=== PATIENT | female | born 1955 | race Caucasian/White ===

== ENCOUNTER 2016-08-18 20:24 | Emergency (ER) | payer OTHER ==
[2016-08-18 20:50] VITALS: BP 130/75; PULSE 82; RESP 18; O2SAT 99
[2016-08-18 21:45] LABS: BASOPHILS % (AUTO) 0.8 % (0-3); EOSINOPHILS % (AUTO) 1.3 % (0-5); MONOCYTES % (AUTO) 9.5 % (4-12); Mean Corpuscular Hemoglobin 25.7 pg (27.0-35.0); Mean Corpuscular Volume 80.8 fL (81-100); NEUTROPHILS % (AUTO) 60.7 % (40-74); Platelet Count 311 bil/L (150-400)
[2016-08-18 22:07] LABS: TROPONIN T 0.01 ug/L (0.0-0.011)
[2016-08-18 22:18] LABS: Magnesium 1.9 mg/dL (1.6-2.6)
--- NOTE | 2016-08-18 22:50 | ED.REPORT ---
HPI-General Illness Date of Service August 18, 2016 ED Provider: Micha Negron MD The patient is a 61 year old female w/ a hx of HTN who presents to the ED due to heart palpitations for the past few days. She has been on daily Xanax at night as a sleep aid for many years. She reduced the dosage to half and hasn't had any for 3 or 4 days and began to experience her symptoms. Associated symptoms include nausea and blurred vision. The pt cannot sleep without Xanax. She is supposed to have surgery on Thursday. 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 Her PCP is Dr. Sorensen. Nursing Notes Stated Complaint: HEART PALPITATIONS, BLURRY VISION Chief Complaint: General Complaint Nursing Notes Reviewed: Yes Allergies: Coded Allergies: Tetanus Vaccines and Toxoid (Verified Allergy, Unknown, 08/18/16) Scheduled PRN Alprazolam (Alprazolam) 0.5 Mg Tablet 0.5 MG PO HS PRN PRN For Anxiety General Time Seen by MD: 22:49 Chief Complaint Other Hx Obtained From: Patient Arrived By: Walk-in Onset Occurred: 3 days ago Recent Healthcare: No recent doctor visit, No recent hospitalization Similar Sx Previous: No Past Medical History Past Medical History HTN arthritis Past Surgical History Reports: Hysterectomy Social History Other Social History: Good social support, , Local resident Review of Systems heart palpitations Full Review of Systems Eyes: Reports: Blurred bilateral GI: Reports: Nausea Psychiatric: Reports: Insomnia Complete sys rev & neg: except as marked. Physical Exam Vital Signs Vital Signs Date Time Temp Pulse Resp B/P Pulse Ox O2 Delivery O2 Flow Rate FiO2 08/18/16 23:34 36.4 75 20 126/66 98 Room Air 08/18/16 23:11 36.4 75 20 126/66 98 Room Air 08/18/16 20:50 36.7 82 18 130/75 99 Room Air Initial VS: Reviewed Head / Eyes: Atraumatic, Normocephalic, PERRL General/Constitutional: Cooperative, Not toxic appearing Behavior: Positive: Anxious mildly tremulous Interpretation & Diagnostics Lab Results Interpretation Result Diagram: 08/18/16211908/18/162119 Test 08/18/16 21:20 White Blood Count 9.2th/mm3 (3.8-10.1) Red Blood Count 4.63mil/mm3 (3.90-5.20) Hemoglobin 11.9g/dL (12.0-15.6) Hematocrit 37.4% (35.0-46.0) Mean Corpuscular Volume 80.8fL (81-100) Mean Corpuscular Hemoglobin 25.7pg (27.0-35.0) Mean Corpuscular Hemoglobin Concent 31.8% (32.0-37.0) Red Cell Distribution Width 14.6% (12.3-15.4) Platelet Count 311bil/L (150-400) Neutrophils (%) (Auto) 60.7% (40-74) Lymphocytes (%) (Auto) 27.4% (14-46) Monocytes (%) (Auto) 9.5% (4-12) Eosinophils (%) (Auto) 1.3% (0-5) Basophils (%) (Auto) 0.8% (0-3) Sodium Level 141mEq/L (134-144) Potassium Level 3.9mEq/L (3.5-5.2) Chloride Level 101mEq/L (97-108) Carbon Dioxide Level 27mmol/L (18-29) Blood Urea Nitrogen 16mg/dL (8-27) Creatinine 0.96mg/dL (0.57-1.00) Estimat Glomerular Filtration Rate 84mL/min (>59) Glucose Level 141mg/dL (60-99) Calcium Level 10.2mg/dL (8.5-10.1) Magnesium Level 1.9mg/dL (1.6-2.6) Total Bilirubin 0.2mg/dL (0.0-1.2) Aspartate Amino Transf (AST/SGOT) 24U/L (0-50) Alanine Aminotransferase (ALT/SGPT) 22U/L (0-32) Alkaline Phosphatase 119U/L (25-165) Troponin T 0.010ug/L (0.0-0.011) Total Protein 7.1g/dL (6.4-8.4) Albumin 4.0g/dL (3.4-5.0) Hold Riley Top Tube Received (Received) ECG Interpretation Time: 22:41 Interpreted by: ED physician Normal ECG Interpretation: Normal ECG w/ rate of... (74) Re-Eval/Medical Decision Med Decision/Clinical Course 61-year-old presents with anxiety and palpitations, in withdrawal from Xanax. She is just two days preop from a parathyroidectomy, and the timing is not particularly good at the moment. She should probably be maintained her perioperative period and then tapered afterwards. Provided with fourteen Xanax 0.5 with intention of one and night through surgery, then a half pill nightly taper. Discharged in stable condition follow up with Dr. Sorensen Time of Eval: 23:06 Re-Evaluation/Progress Note: Pt rechecked. Discussed plan of treatment and reducation in Xanax dosage with patient. F/U and RTER warnings given. Pt understands and agrees with plan. All questions addressed. Counseled Regarding: Diagnosis, Lab results, Need for follow-up, When/why to return to ED Discharge & Departure Primary Impression: Benzodiazepine withdrawal Complication of substance-induced condition: uncomplicated Qualified Code: F13.230 - Sedative, hypnotic or anxiolytic dependence with withdrawal, uncomplicated Additional Impressions: Heart palpitations Anxiety Insomnia Disposition: Home Discharge Condition All VS Reviewed: Yes Condition: Stable Additional Instructions: Your symptoms are most likely due to Xanax withdrawal. For now, maintained your once nightly dose, until you are past the operative period, and are recovering. I would then recommend slowly decreasing your Xanax dosage over a period of time, such as one quarter tablet nightly for a week and every other night for another week and then stop. Follow up with your primary care physician to monitor your withdrawal. He can also help to deal with her long- term insomnia by other means. Return to the Emergency Department for any new or worsening symptoms. I hope you feel better soon! Referrals: Nabor Sorensen DO (PCP) Vikas Attestation Portion of this note were transcribed by Nilda Bello. I, Dr. Micha Negron, personally performed the history, physical exam, and medical decision- making: I reviewed and confirmed the accuracy for the information in the transcribed note. Signed by: vikas Carr, 08/18/16 2300 copies to: Nabor Sorensen Christopher W MD August 18, 2016 22:50 Nilda Bello August 18, 2016 23:06
[2016-08-18] MEDS ORDERED: ALPRAZolam 0.5 mg Tablet PO ONE (23:10)
[2016-08-18 23:11] VITALS: BP 126/66; PULSE 75; RESP 20; O2SAT 98
[2016-08-18] MEDS ORDERED: ALPR0.5T8 PO (23:13)
[2016-08-18 23:34] VITALS: BP 126/66; PULSE 75; RESP 20; O2SAT 98
[2016-08-20] MEDS ORDERED: METO-274 PO (12:13)
[2016-08-20] MEDS ORDERED: LEVO125T6 PO (12:13)
[2016-08-20] MEDS ORDERED: ATOR80TA PO (12:13)
[2016-08-20] MEDS ORDERED: IBUP800T28 PO (12:13)
== END 2016-08-18 23:35 | disposition home or self-care (01) ==
LOC: SED 20:24
DX: R00.2 Palpitations (principal); F13.230 Sedative, hypnotic or anxiolytic dependence with withdrawal, uncomplicated; F41.9 Anxiety disorder, unspecified; G47.00 Insomnia, unspecified; R11.0 Nausea; H53.8 Other visual disturbances; F43.9 Reaction to severe stress, unspecified; I10 Essential (primary) hypertension; Z88.7 Allergy status to serum and vaccine

== ENCOUNTER 2016-08-22 06:02 | Day surgery (SDC) | payer OTHER ==
[~2016-08-22] VITALS: Ht 172.7 cm; Wt 83.1 kg
[2016-08-22] VITALS (11 sets, daily range): BP systolic 103–154; BP diastolic 56–79; PULSE 66–76; RESP 11–18; O2SAT 93–100
[~2016-08-22 06:02] MED LIST: ALPR0.5T8 PO; ATOR80TA PO; IBUP800T28 PO; LEVO125T6 PO; METO-274 PO
[2016-08-22] MEDS ORDERED: fentaNYL-PF 50 mCg/mL 2 mL Inj ONE (06:03)
[2016-08-22] MEDS ORDERED: Ondansetron 2 mg/mL 2 mL Inj ONE (06:03)
[2016-08-22] MEDS ORDERED: Phenylephrine/NS-PF 100 mCg/mL 5 mL Syringe IVPUSH ONE (06:03)
[2016-08-22] MEDS ORDERED: Lidocaine PF 1% 30 mL Inj ONE (06:03)
[2016-08-22] MEDS ORDERED: Dexamethasone 4 mg/mL Inj ONE (06:03)
[2016-08-22] MEDS ORDERED: Propofol 10,000 mCg/mL 20 mL Inj ONE (06:03)
[2016-08-22] MEDS: Lactated Ringer's 1,000 ML IV SCH ×3 (06:20→09:29)
[2016-08-22] MEDS ORDERED: Lactated Ringer's 500 ML IV PRN (07:24)
[2016-08-22] MEDS ORDERED: Lactated Ringer's 1,000 ML IV SCH (07:24)
--- NOTE | 2016-08-22 07:24 | PCM.HPANE ---
Patient Data Date of Service: August 22, 2016 (719) Surgeon Admitting Provider: Attending Provider:Justin Larsen MD Primary Care Physician:Nabor Sorensen DO Other Provider:Prosper Carreon Anesthesia Reason for Visit Hyperparathyroidism Ht/WT & BMI Height (Feet): 5 Height (Inches): 8 Weight (Kilograms): 83.1 Body Mass Index 27.00 Allergies Coded Allergies: Tetanus Vaccines and Toxoid (Verified Allergy, Unknown, UNKNOWN, 08/20/16) Past Anesthesia History Anesthesia History: Denies:: Abnormal Airway, Anesthesia Reactions, Difficult Intubation, Fam Anesthesia Reaction, Fam Malignant Hypertherm, Malignant Hyperthermia Diabetes History Hx Diabetes?: No MRSA MRSA: No Medications Home Meds Incl Beta Rosita: Yes (METOPROLOL) Active Scripts Alprazolam 0.5 Mg Tablet0.5 Mg PO HS PRN For Anxiety #14 TABLET Ref 0 Prov:Micha Negron MD 08/18/16 Reported Medications Metoprolol Succinate ER 100 Mg Tab.[id number] Mg PO DAILY Ref 0 08/20/16 Atorvastatin (Lipitor)80 Mg [id number] Mg PO DAILY Ref 0 08/20/16 Levothyroxine 125 Mcg [id number] Mcg PO DAILY For Thyroid Replacement Ref 0 08/20/16 Ibuprofen 800 Mg [id number] Mg PO TID PRN For Pain Ref 0 08/20/16 History History of ENT Problems?: Yes HEENT History: Positive for:: Sinus Problem (C/OF CHRONIC SINUSITIS/FREQ. EPISTAXIS) Denies:: Abnormal Airway Difficult Intubation Hearing Problem Denture Type: None Teeth Condition: Within Normal Limits Hx of Heart Problems?: Yes Cardiovascular History: Positive for:: Hypertension (HYPERLIPIDEMIA) Denies:: Congestive Heart Failure Heart Murmur Irregular Heartbeat (ED VISIT 08/18/16 FOR BENZO WITHDRAWAL-PALPITATIONS/ BLURRED VISION,NAUSEA) Hx of Respiratory Problem?: No Respiratory History: Denies:: Tuberculosis Use of C-PAP Machine Hx Neurologic Problems?: Yes Neurological History: Denies:: CVA Dementia (C/OF POOR MEMORY) Hx of GI Problems?: Yes Other GI Pertinent History: HX IBS Hx of Problems?: No Female Hx: Denies:: Currently Skin History: Positive for:: History Skin Disorders? (DYSHIDROTIC ECZEMA) Denies:: Pressure Ulcers Hx Musculoskeletal Problems?: Yes Musculoskeletal History: Positive for:: Osteoarthritis (OSTEOPENIA W/ BONE PAIN (NO FX)) Denies:: Back Injury Hx of Psycho/Social Problems?: Yes Psycho Social History: Positive for:: Anxiety Hx Depression Hx Surgeries?: Yes (LAMPk,HYST) Hx Any Other Health Problems?: Yes Other History: Positive for:: Thyroid Disease (HYPOTHYROID HYPERPARATHYROIDISM=CURRENT PROB. (?ADENOMA?)) Denies:: Cancer Endocrine Disease Hospitalization History Blood Transfusions: Denies:: Blood Transfusions Hx Diabetes: No Hx Alcohol Use: NoHx Substance Use: No Smoking Status: Never Smoker Have You Smoked inLast 12 mo: No Stop/Bang S-Snoring: Do You Snore Loudly: No T-Tired: feel tired, fatigued: Yes O-Obsered: Observed not breath: No P-Blood Pressure: treated: Yes B- Body Mass Index > 35 kg/m2: No A- Age over 50: Yes N- Neck Large Circumference: No G- Gender Male: No PATTI Total Score: 3 PATTI Risk Assessment: High Risk, =/>3 Yes Risk Assessment Category Category 1A: Patient has history of documented sleep apnea, and HAS NOT received any narcotic, sedative or anesthesia administration during this stay. Category 1B: Patient has history of documented sleep apnea, and HAS received any narcotic , sedative or anesthesia administration during this stay Category 2: Patient has SUSPECTED Obstructive Sleep Apnea, and HAS received any narcotic , sedative or anesthesia administration during this stay. Category 3: Patient has SUSPECTED Obstructive Sleep Apnea and HAS NOT received narcotic, sedative or anesthesia administration during this stay. Category 4: Outpatient in Procedural Areas with known sleep apnea or who screen positive for High Risk via the STOP/BANG questionnaire. Exam Exam Vital Signs Vital Signs Date Time Temp Pulse Resp B/P Pulse Ox O2 Delivery O2 Flow Rate FiO2 08/22/16 06:21 36.1 76 16 133/68 97 Room Air General Appearance: Alert, Oriented X3, Cooperative HEENT/AIRWAY: MP 2 Lungs: Clear to Auscultation Heart: Exam Unremarkable Meds/Labs/Diagnostics Admission Meds Current Medications Lactated Ringer's (Lr) 1,000 ml @ 120 mls/hr Q8H20M IV Last administered on t 06:20; Start 08/22/16 at 05:00; Stop 08/22/16 at 13:19 Plan Impression Patient chart reviewed, patient interviewed and anesthestic plan with risks, benefits, and alternatives discussed, and informed consent obtained. NPO per Anesth. Guidelines: Yes ASA Physical Status: ASA2 Mod Systemic Disease Anesthetic Plan: GA Bene/Risks/Altern/Consents: Yes HP Complete Prior to Induction: Yes Jordan Martino MD August 22, 2016 07:24
[2016-08-22] MEDS ORDERED: HYDROmorphone 1 mg/mL Inj IVPUSH PRN (07:25)
[2016-08-22] MEDS ORDERED: Dexamethasone 4 mg/mL Inj IVPUSH PRN (07:25)
[2016-08-22] MEDS ORDERED: fentaNYL-PF 50 mCg/mL 2 mL Inj IVPUSH PRN (07:25)
[2016-08-22] MEDS ORDERED: Phenylephrine 10,000 mCg/mL Inj IVPUSH PRN (07:25)
[2016-08-22] MEDS ORDERED: EPHEDrine Sulfate 50 mg/mL Inj IVPUSH PRN (07:25)
[2016-08-22] MEDS ORDERED: Ondansetron 2 mg/mL 2 mL Inj IVPUSH PRN (07:25)
[2016-08-22] MEDS ORDERED: MetoCLOpramide 5 mg/mL 2 mL Inj IVPUSH PRN (07:25)
[2016-08-22] MEDS ORDERED: Bupivacaine-MPF 0.5% W/EPI 30 mL Inj INFILTRATE ONE (07:54)
--- NOTE | 2016-08-22 09:34 | PCM.SURGOP ---
Surgical Operative Report Date of Service: August 22, 2016 Pre Operative Diagnosis Hyperparathyroidism Post Operative Diagnosis Same Procedure: Parathyroid exploration Surgeon and Rivet Sticker: Surgeon: Justin Larsen MD Assistants: Campos Swann PA-C Indication for Procedure 61-year-old woman who has had mild primary hyperparathyroidism. Her most recent preoperative labs showed a calcium of 10.5, PTH of 65. Her highest parathyroid hormone level was 80. Her nuclear medicine parathyroid imaging study suspicious for a parathyroid adenoma in the right mid thyroid bed. She had an ultrasound because of hypothyroidism to rule out thyroid nodules, and to attempt to confirm a nuclear medicine finding, and the ultrasound showed a hypoechoic nodule in the left inferior neck, suspicious for parathyroid adenoma. Imaging was difficult for the right-sided lesion, and it may have been seen, but was not very convincing. After discussion of risks and benefits , she agreed to proceed with parathyroid exploration. Findings: A left inferior parathyroid adenoma was removed measuring 0.9 x 0.6 x 0.4 cm. A right superior parathyroid adenoma was removed measuring 0.9 x 0.6 x 0.3 cm. The right inferior parathyroid gland was identified, and it appeared normal. The left superior parathyroid gland was probably identified, and it appeared normal. Procedure Details After smooth induction of general endotracheal anesthesia, she was placed in the modified beachchair position with both arms tucked and the neck extended, and was prepped and draped in wide sterile fashion. A procedural pause was performed according to the SCOAP checklist, and all were found to be in agreement. A transverse incision was made in the skin lines of the inferior neck. Dissection was carried through the subcutaneous tissue until the platysma muscle was divided. Subplatysmal skin flaps were raised superiorly and inferiorly. The median raphae was incised, and the left strap muscles were elevated off the left thyroid lobe first. The left middle thyroid vein was divided with the LigaSure device. A baseline PTH was drawn from the left internal jugular vein, which was 96. Along the left inferior border of the thyroid lobe, an abnormal parathyroid gland was visualized. This was slightly bilobed. It was dissected off its blood supply, which had a fairly vigorous left inferior thyroid artery branch, which was controlled with a small Hemoclip. Ex vivo, the parathyroid gland measured 0.9 x 0.6 x 0.4 cm. After 15 minutes, a second PTH was drawn from the left internal jugular vein, which was 79. In the meantime, the right strap muscles were elevated off the right thyroid lobe. The right middle thyroid vein was divided with the LigaSure device. Initially, no abnormal parathyroid was visualized along the inferior aspect of the thyroid lobe. The right recurrent laryngeal nerve was identified easily. Between it and the right inferior thyroid artery, abnormal parathyroid tissue was visualized. In order to expose it, the right inferior thyroid artery was divided with small hemoclips. Dissection was fairly tedious, as the parathyroid was right against the recurrent laryngeal nerve. Unfortunately, the parathyroid gland was somewhat shredded as it was dissected out. No residual parathyroid tissue was left on that area of dissection. Once it was dissected free, it was measured at 0.9 x 0.6 x 0.3 cm. After 15 minutes, a third PTH level was drawn from the left internal jugular vein, which came back at 47. In the meantime, the right inferior parathyroid gland was identified along the trachea at the inferior border of the thyroid lobe, which was normal. Looking back at the left side, the left superior parathyroid gland was probably identified, and it looked normal. Hemostasis was adequate. The strap muscles were reapproximated with interrupted 3-0 Vicryl suture. To the muscle was closed with interrupted 3-0 Vicryl suture. The skin incision was closed with a running 4-0 Monocryl subcuticular stitch. Dermabond was applied to the skin as a dressing. At the end of the case all needle and sponge counts were correct 2. The patient was awakened from anesthesia without difficulty, and taken to the recovery room in satisfactory condition, having tolerated the procedure well. Complications There were no periprocedural complications identified. Surgical Specimen Removed: Yes Specimen sent to Pathology: Yes Surgical Specimen description: Left inferior parathyroid gland. Right superior parathyroid gland. Anesthetic Plan: GA Grafts, Implants: None Output, Estimated Blood Loss: 20 Blood Administration during miles: No Drains: None Catheters: None copies to: Alfonso Taylor MD; Nabor Sorensen Joshua D MD August 22, 2016 09:34
--- NOTE | 2016-08-22 09:38 | PCM.DISURG ---
Surgical Discharge Instruction Date of Service August 22, 2016 Dates of Hospitalization Date of Hospital Admission Providers Admitting Physician: Primary Care Physician: Nabor Sorensen DO Attending Physician: Justin Larsen MD Discharge Diagnosis Discharge Diagnosis Hyperparathyroidism, double adenoma Post Operative diagnosis Same Diet Discharge Diet: No restrictions Activity Discharge Activity-General: No restrictions Dressing and Incisional Care Dressing Instructions: Dermabond will peel off gradually Hygiene: May shower Additional Instructions Discharge Instructions Take supplemental calcium additionally as necessary for paresthesias of the hands or feet. Follow Up Plan Follow Up Plan With Dr. Larsen in 2-3 weeks. Call your provider for: Fever (over 101.5), Discharge @ incision, pus discharge Justin Larsen MD August 22, 2016 09:38
[2016-08-22] MEDS ORDERED: Ketorolac 15 mg/mL Inj IVPUSH PRN (09:40)
[2016-08-22] MEDS ORDERED: HYDROcodone-APAP 5-325 mg Tablet PO PRN (09:40)
--- NOTE | 2016-08-22 09:46 | PCM.ANEP1 ---
Post Anesthesia Phase 1 PACU Phase 1 Assessment Date of Service: August 22, 2016 Vital Signs Vital Signs Date Time Temp Pulse Resp B/P Pulse Ox O2 Delivery O2 Flow Rate FiO2 08/22/16 06:21 36.1 76 16 133/68 97 Room Air Anesthetic Administered: GA Level of Alertness: Awake, talking ODONNELL's with Equal Strength: Yes Pain: No Nausea or Vomiting: No Cardiovascular Function and Hy: Yes Oxygen Delivery: Simple Mask Lungs: Clear to Auscultation Dermatome Level: Full Sensation Summary CARDIAC ARRHYTHMIA NOTED WITH INDUCTION SPONTANEOUSLY CONVERTED, UNEVENTFUL GETA AFTERWARDS. Complications: Yes Follow up Care: No Jordan Martino MD August 22, 2016 09:46
--- NOTE | 2016-08-26 10:58 | PATH ---
SURGICAL PATHOLOGY Attending Physician:Ivy Valiente CASE STATUS: Signed Out PATIENT NAME: SHARON CROCKER PID: [id number] : 1955 DATE COLLECTED:08/22/2016 15:16 SPECIMEN: 1: Parathyroid Gland 2: Parathyroid Gland CLINICAL HISTORY: HYPER PARATHYROIDISM 1. LEFT INFERIOR PARATHYROID GLAND 0.9 X 0.6 X 0.4 2. RIGHT SUPERIOR PARATHYROID GLAND 0.9 X 0.6 X 0.3 FINAL DIAGNOSIS: 1.LEFT INFERIOR PARATHYROID GLAND (0.1 GRAMS): DIFFUSE MULTINODULAR PARATHYROID HYPERPLASIA. GLAND SIZE 0.9 X 0.6 X 0.4 CM. 2.RIGHT SUPERIOR PARATHYROID GLAND (0.1 GRAMS): DIFFUSE MULTINODULAR PARATHYROID HYPERPLASIA. GLAND SIZE 0.9 X 0.6 X 0.3 CM. ICD10 code E21.0 NOTE: As part of a routine quality control assistant, Dr. Luis Chamorro has also reviewed this case and agrees with the diagnosis. GROSS DESCRIPTION: The specimens are received in formalin, labeled with the patient's name, and sublabeled as the following: (1) left inferior parathyroid gland, 0.9 x 0.6 x 0.4 cm; (2) right superior parathyroid gland, 0.9 x 0.6 x 0.3 cm. (1) The specimen consists of a evans-yellow rubbery parathyroid gland (0.1 g, 0.9 x 0.6 x 0.4 cm). The cut surface is evans-yellow and homogenous. No nodules, masses or lesions are identified. Ink code: blue-parathyroid/thyroid interface. Section code: (1A) parathyroid gland, serially sectioned. Specimen entirely submitted. (2) The specimen consists of a evans-yellow rubbery parathyroid gland (<0.1 g, 0.9 x 0.6 x 0.3 cm). The cut surface is evans-yellow and homogenous. No nodules, masses or lesions are identified. Ink code: blue-parathyroid/thyroid interface. Section code: (2A) parathyroid gland, serially sectioned. Specimen entirely submitted. 08/23/16 JM MICRO DESCRIPTION: Sections from parts 1 and 2 are from the left inferior parathyroid and the right superior parathyroid gland. Both glands are similar. There are multiple enlarged nodules consisting of sheets of chief cells. The multiple nodules are present throughout both glands with varying amounts of intervening adipose tissue. A rim of normal parathyroid tissue is not identified in either specimen. The changes are felt to be therefore most consistent with diffuse nodular parathyroid hyperplasia. ICD-9 CODES: CPT CODES: 1: 40014 2: 17839 Electronically Signed Out Malick Santamaria MD [facility] [address], [place] [address] Technical component performed at [facility], [facility] [address], [place], [address]
== END 2016-08-22 23:59 | disposition home or self-care (01) ==
LOC: SAS 06:02
PROVIDERS: ATTEND Student in an Organized Health Care Education/Training Program
PROC: 0GBL0ZZ Excision of Right Superior Parathyroid Gland, Open Approach (ICD-10-PCS; 2016-08-22)
PROC: 0GBP0ZZ Excision of Left Inferior Parathyroid Gland, Open Approach (ICD-10-PCS; principal; 2016-08-22 07:30)
DX: D35.1 Benign neoplasm of parathyroid gland (principal); E21.0 Primary hyperparathyroidism; I10 Essential (primary) hypertension; K58.9 Irritable bowel syndrome, unspecified; E03.9 Hypothyroidism, unspecified
CPT/HCPCS: 36415; 60500; 83970; J1100; J1170; J1885; J2250; J2370; J2405; J2765; J3010; J7120